=== PATIENT | female | born 1955 | race Asian ===

== ENCOUNTER 2017-01-18 09:16 | Outpatient (CLI) | payer OTHER, BC | END 2017-01-18 19:58 | disposition home or self-care (01) | LOC: SMA 09:16 | PROVIDERS: ATTEND Obstetrics & Gynecology Gynecology | DX: Z12.31 Encounter for screening mammogram for malignant neoplasm of breast (principal) | CPT/HCPCS: 77067; G0202 ==

== ENCOUNTER 2017-01-31 10:00 | Outpatient (CLI) | payer OTHER, BC | END 2017-01-31 19:12 | disposition home or self-care (01) | LOC: SUS 10:00 | PROVIDERS: ATTEND Obstetrics & Gynecology Gynecology | DX: N63 Unspecified lump in breast (principal) | CPT/HCPCS: 76641; G0206 ×2 ==

== ENCOUNTER 2018-01-23 10:58 | Outpatient (CLI) | payer OTHER, BC | END 2018-01-23 19:44 | disposition home or self-care (01) | LOC: SMA 10:58 | PROVIDERS: ATTEND Obstetrics & Gynecology Gynecology | DX: Z12.31 Encounter for screening mammogram for malignant neoplasm of breast (principal) | CPT/HCPCS: 77067 ==

== ENCOUNTER 2019-01-29 10:44 | Outpatient (CLI) | payer OTHER, BC | END 2019-01-29 21:21 | disposition home or self-care (01) | LOC: SMA 10:44 | PROVIDERS: ATTEND Obstetrics & Gynecology Gynecology | DX: Z12.31 Encounter for screening mammogram for malignant neoplasm of breast (principal) | CPT/HCPCS: 77067 ==